=== PATIENT | female | born 1995 | race African-American/Black ===

== ENCOUNTER 2024-12-27 05:25 | Inpatient (IN) | payer OTHER ==
[2024-12-27] MEDS: ELECTROLYTE-148 SOLN 500 ML IV ONE (05:55)
[2024-12-27 06:08] VITALS: BMI 29.7
[2024-12-27] MEDS: ELECTROLYTE-148 SOLN 1,000 ML IV SCH (06:48)
[2024-12-27] MEDS: CITRIC ACID/SODIUM CITRATE 30 ML UNIT-DOSE CUP PO ONE (07:45)
[2024-12-27] MEDS ORDERED: PHENYLEPHRINE HCL 10 MG/1 ML SINGLE DOSE VIAL ONE (07:53)
[2024-12-27] MEDS ORDERED: OXYTOCIN 10 UNITS/ML VIAL ONE (07:53)
[2024-12-27] MEDS ORDERED: KETOROLAC TROMETHAMINE 30 MG/1 ML VIAL ONE (07:53)
[2024-12-27] MEDS ORDERED: ONDANSETRON 4 MG/2 ML VIAL ONE (07:53)
[2024-12-27] MEDS ORDERED: FENTANYL CITRATE/PF 50 MCG/ML VIAL ONE (07:54)
[2024-12-27] MEDS ORDERED: morphine SULFATE/PF 1 MG/2 ML (2cc Syringe - QUVA) ONE (07:54)
[2024-12-27] MEDS ORDERED: CITRIC ACID/SODIUM CITRATE 30 ML UNIT-DOSE CUP PO ONE (08:19)
[2024-12-27] MEDS ORDERED: METHYLERGONOVINE MALEATE 0.2 MG/1 ML AMP IM PRN (08:24)
[2024-12-27] MEDS ORDERED: ACETAMINOPHEN 325 MG TABLET (FP) PO PRN (08:24)
[2024-12-27] MEDS ORDERED: IBUPROFEN 800 MG/8 ML IJ IVPB PRN (08:24)
[2024-12-27] MEDS ORDERED: ONDANSETRON 4 MG/2 ML VIAL IVPUSH PRN (10:03)
[2024-12-27] MEDS ORDERED: OXYTOCIN 20 UNITS in 0.9% NS 20 UNIT/1,000 ML INFUS.BAG IV ONE (11:04)
[2024-12-27] MEDS: OXYTOCIN 20 UNITS in 0.9% NS 20 UNIT/1,000 ML INFUS.BAG IV SCH (11:30)
[2024-12-27] MEDS: PRENATAL VITAMINS W/ FOLIC ACID TABLET (FP) PO SCH (11:39)
[2024-12-27] MEDS: FERROUS SO4 325 MG TABLET (FP) PO SCH (11:39)
[2024-12-27] MEDS: ACETAMINOPHEN 1000 MG/100 ML BAG IVPB PRN (17:00)
[2024-12-28] MEDS: ELECTROLYTE-148 SOLN 1,000 ML IV SCH (01:38)
[2024-12-28] MEDS: SIMETHICONE 80 MG TAB.CHEW (FP) PO PRN (06:26)
[2024-12-28] MEDS ORDERED: BISACODYL 10 MG SUPP.RECT RC PRN (08:24)
[2024-12-28 08:25] LABS: ABSOLUTE IMMATURE GRANULOCYTES 0.03 x10^3/uL (0.0-0.031); BASOPHILS # 0.02 x10^3/uL (0.01-0.08); EOSINOPHIL % 1.2 % (0.7-5.8); EOSINOPHILS # 0.09 x10^3/uL (0.04-0.36); MCHC 33.1 g/dl (32.2-35.5); MEAN CELL VOLUME 90.2 fl (79.4-94.8); MEAN PLT VOLUME 11.7 fl (9.4-12.3); MONOCYTE # 0.48 x10^3/uL (0.24-0.86); MONOCYTE % 6.5 % (4.7-12.5); RDW 14.3 % (12.1-16.5)
[2024-12-28] MEDS: IBUPROFEN 600 MG TABLET (FP) PO PRN (09:37)
[2024-12-29] MEDS: SENNOSIDES/DOCUSATE COMBO (SENNA PLUS) TABLET (UD) PO PRN (22:25)
[2024-12-30 20:50] VITALS: RESP 18
[2024-12-31 10:23] VITALS: BP 112/70; PULSE 68; TEMP 98.2
== END 2024-12-31 13:46 | disposition home or self-care (01) | DRG 540 ==
LOC: JLDR 05:25 → J3W 12:05
PROVIDERS: ADMIT Obstetrics & Gynecology; ATTEND Obstetrics & Gynecology
PROC: 10D00Z1 Extraction of Products of Conception, Low, Open Approach (ICD-10-PCS; principal; 2024-12-27)
DX: O34.211 Maternal care for low transverse scar from previous cesarean delivery (principal); O69.81X0 Labor and delivery complicated by cord around neck, without compression, not applicable or unspecified; Z3A.38 38 weeks gestation of pregnancy; Z37.0 Single live birth; O75.89 Other specified complications of labor and delivery; N63.0 Unspecified lump in unspecified breast
CPT/HCPCS: 36415; 59409; 80048; 85025; 85610; 85730; 86780; 86803; 86850; 86900; 86901; 87340; 87389; 88307-TC; 94010